=== PATIENT | male | born 1980 | race Caucasian/White ===

== ENCOUNTER 2021-04-03 23:06 | Emergency (ER) | payer BC, MEDICAID, SELFPAY ==
--- NOTE | 2021-04-03 00:15 | RAD_ITS ---
STUDY: X-RAY - LEFT ANKLE REASON FOR EXAM: Male, 40 years old. Injury/Pain TECHNIQUE: 3 view(s) of the ankle. COMPARISON: None. FINDINGS: Normal visualized distal tibia and fibula. Normal medial and lateral malleoli. Normal tibiotalar articulation and ankle mortise. Normal visualized talus and calcaneus. The visualized subtalar, talonavicular, calcaneocuboid and tarsal articulations are normal. The soft tissue structures are unremarkable. RAD/Ankle min 3 Views IMPRESSION: Normal x-ray examination of the ankle. Electronically Signed: Bo Silva MD at 2:00 EDT Tel , Service support ,
[2021-04-03 23:07] VITALS: BP 140/86; PULSE 86; RESP 18; TEMP 37.1; O2SAT 100; BMI 22.4
[2021-04-03] MEDS: HYDROmorphone 1 MG/ML Syringe IV (23:14)
[2021-04-03] MEDS: Ondansetron 4 MG/2 ML Vial IV (23:14)
[2021-04-03 23:17] VITALS: BP 143/94; PULSE 82; RESP 17; TEMP 37.1; O2SAT 98
--- NOTE | 2021-04-03 23:51 | RAD_ITS ---
STUDY: X-RAY - LEFT TIBIA AND FIBULA REASON FOR EXAM: Male, 40 years old. Injury/Pain TECHNIQUE: 3 view(s) of the tibia and fibula were obtained. COMPARISON: None. FINDINGS: Comminuted displaced fracture of the proximal metaphysis and epiphysis of the tibia. Normal visualized fibula. The soft tissue structures are unremarkable. RAD/Tibia & Fibula 2 Views IMPRESSION: Comminuted displaced fracture of the proximal metaphysis and epiphysis of the tibia. Electronically Signed: Bo Silva MD at 2:02 EDT Tel , Service support ,
[2021-04-04] VITALS (10 sets, daily range): BP systolic 123–151; BP diastolic 69–97; PULSE 65–84; RESP 12–22; TEMP 37.3; O2SAT 97–100
[2021-04-04] MEDS: Diphth,Pertuss(Acell),Tet Vac 0.5 ML Vial IM (00:06)
[2021-04-04] MEDS: HYDROmorphone 1 MG/ML Syringe IV ×2 (00:41→03:56)
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
[2021-04-04] MEDS: Cefazolin 1 GM/50 ML BAG IV (02:20)
[2021-04-04] MEDS: Propofol 200 MG/20 ML Vial IV BOLUS (03:36)
[2021-04-04] MEDS: Lidocaine 1% (20 ml mdv) 20 ML Vial INFILT (04:34)
== END 2021-04-04 04:35 | disposition short-term general hospital (02) ==
LOC: ED 04-04 01:12
PROVIDERS: Emergency Provider Emergency Medicine
DX: S82.102A Unspecified fracture of upper end of left tibia, initial encounter for closed fracture (principal); S61.011A Laceration without foreign body of right thumb without damage to nail, initial encounter; F17.210 Nicotine dependence, cigarettes, uncomplicated; V89.2XXA Person injured in unspecified motor-vehicle accident, traffic, initial encounter
CPT/HCPCS: 12001; 29505; 73590; 73610; 90715; 96365; 96374; 96375; 96376; 99152; 99285; J7030; J7050; A4216; J2405